=== PATIENT | male | born 1980 | race Caucasian/White ===

== ENCOUNTER → 2023-04-25 13:35 | Outpatient (BNVA) | payer OTHER, SELFPAY | PROVIDERS: Referring Provider Emergency Medicine Emergency Medical Services; Visit Provider Specialist | DX: M25.561 Pain in right knee (principal); G89.29 Other chronic pain | CPT/HCPCS: 73560; 73565; 99204 ==

== ENCOUNTER 2023-05-23 07:55 | Outpatient (CLI) | payer OTHER, SELFPAY ==
--- NOTE | 2023-05-23 09:15 | CT_ITS ---
WS: [id number] CT RIGHT KNEE, NONCONTRAST, 3D. HISTORY: M25.569 - Pain in unspecified knee Technique: All CT scans at [facility] use at least one of these dose optimization techniques: automated exposure control; mA and/or kV adjustment per patient size (includes targeted exams where dose is matched to clinical indication); or iterative reconstruction. DLP: 332.88 mGy.cm COMPARISON: Radiograph 04/25/2023 5 mm metallic fragment superficial to the sartorius muscle. No acute fracture. Very slight lateral subluxation of the patella could be positional. There is no si gnificant joint space narrowing. There is a small sclerotic focus consistent with a bone island later al femoral condyle. No soft tissue mass. No significant joint effusion. No muscle atrophy or edema. No soft tissue abnormality identified by CT. No osteochondral lesions along the joint surfaces. IMPRESSION: 1. No fractures or osteochondral lesions involving the RIGHT knee. 2. Metallic bone fragment measuring 5 mm superficial to the sartorius muscle. 3. No joint effusion.
== END 2023-05-23 07:56 | disposition home or self-care (01) ==
PROVIDERS: Visit Provider Specialist
DX: M25.561 Pain in right knee (principal); Z18.10 Retained metal fragments, unspecified
CPT/HCPCS: 73700

== ENCOUNTER → 2023-06-13 07:57 | Outpatient (BNVA) | payer OTHER, SELFPAY | PROVIDERS: Visit Provider Specialist | DX: M25.561 Pain in right knee (principal) | CPT/HCPCS: 99213 ==

== ENCOUNTER → 2023-12-19 07:56 | Outpatient (BNVA) | payer OTHER, SELFPAY | PROVIDERS: Visit Provider Specialist | DX: M25.561 Pain in right knee (principal); G89.29 Other chronic pain | CPT/HCPCS: 73560; 73565; 99214 ==